=== PATIENT | female | born 1990 | race African-American/Black ===

== ENCOUNTER 2023-08-05 14:42 | Emergency (ER) | payer OTHER | END 2023-08-05 16:34 | disposition home or self-care (01) | LOC: CSHERS 14:42 | DX: R60.9 Edema, unspecified (principal) | CPT/HCPCS: 93005 ==

== ENCOUNTER 2023-08-20 01:42 | Emergency (ER) | payer OTHER ==
[2023-08-20 02:26] LABS: Bilirubin Neg (Negative); Blood, Urine 10 (Negative); Clarity Slightly Cloudy (Clear); Glucose, Urine (Dipstick) Normal (Negative); Ketone, Urine 5 mg/dL (Negative); Leukocyte Negative (Negative); Nitrite Negative (Negative); Protein, Urine (Dipstick) Negative (Neg-Trace); Specific Gravity, Urine 1.015 (1.005-1.030); Urobilinogen Normal mg/dL (Less than 2)
[2023-08-20 02:26] LABS: #Basophils 0.04 10x3/uL (0.0-0.2); #Eosinphils 0.07 10x3/uL (0.0-0.5); #Monocytes 0.69 10x3/uL (0.0-1.1); %Basophils 0.5 % (0.0-2.0); %Eosinophils 0.9 % (0.0-6.0); %Lymphocytes 25.3 % (18.0-47.0); %Monocytes 8.4 % (0.0-10.0); %Neutrophils 64.8 % (40.0-75.0); Hematocrit 32.9 % (34.9-44.5); Hemoglobin 10.4 g/dL (12.0-15.5); Mean Corpuscular HGB CONC 31.6 g/dL (32.0-36.0); Mean Corpuscular Hemoglobin 23.9 pg (27.0-33.0); Mean Corpuscular Volume 75.5 fL (81.6-98.3); Platelet Count 376 10x3/uL (150-450); Red Blood Cell (RBC) Count 4.36 10x6/uL (3.90-5.03); White Blood Cell (WBC) Count 8.2 10x3/uL (3.5-10.5)
[2023-08-20 02:28] LABS: Pregnancy Test - Urine (BHCG) Negative (Negative); Pregu Control Background? CLEAR/WHITE (CLR/WHITE); Pregu Control Bar Appear? YES (CONTROL BAR); Specific Gravity 1.015 (1.002-1.036)
[2023-08-20 02:35] LABS: Bacteria/HPF None Seen HPF (None Seen); CAUTI Indications for Culture Pelvic or flank pain; RBC/HPF None Seen HPF (0-3); WBC/HPF 0-3 HPF (0-3)
[2023-08-20 02:37] LABS: Urine Culture Reflex No No
[2023-08-20 02:40] LABS: ALT (SGPT) 22 U/L (8-55); AST (SGOT) 20 U/L (5-34); Albumin 3.3 g/dL (3.5-5.0); Alkaline Phosphatase 52 U/L (40-110); Anion Gap 11 mmol/L (10-20); BUN (Urea Nitrogen) 6 mg/dL (7.0-18.7); Bilirubin, Total 0.3 mg/dL (0.2-1.2); Calc. Creatinine Clearance 0 mL/min (70-130); Calcium 8.8 mg/dL (7.8-10.44); Carbon Dioxide 25 mmol/L (22-29); Chloride 109 mmol/L (98-107); Estimated GFR 101; Globulin 2.7 g/dL (2.4-3.5); Glucose 86 mg/dL (70-105); Lipase 9 U/L (8-78); Potassium 3.3 mmol/L (3.5-5.1); Sodium 142 mmol/L (136-145)
[2023-08-20] MEDS ORDERED: Lidocaine 2% Viscous 10 mL, Alum & Magn 30 mL SSW SCH (02:45)
[2023-08-20] MEDS ORDERED: Acetaminophen 500 MG TAB ONE (03:38)
== END 2023-08-20 03:43 | disposition home or self-care (01) ==
LOC: CSHERS 01:42
DX: R10.10 Upper abdominal pain, unspecified (principal); R11.0 Nausea; Z75.3 Unavailability and inaccessibility of health-care facilities
CPT/HCPCS: 36415; 80053; 81001; 81025; 83690; 85025; 99284

== ENCOUNTER 2023-09-03 16:32 | Outpatient (CLI) | payer OTHER | END 2023-09-03 16:33 | disposition home or self-care (01) | LOC: CSHRAD 16:32 | PROVIDERS: ATTEND Family Medicine | DX: M25.472 Effusion, left ankle (principal) ==